=== PATIENT | male | born 1985 | race African-American/Black ===

== ENCOUNTER 2025-05-17 09:39 | Emergency (ER) | payer OTHER ==
[~2025-05-17] VITALS: Ht 175.3 cm; Wt 96.0 kg
[2025-05-17] MEDS ORDERED: PHEN15CA6 PO (10:12)
[2025-05-17 11:21] LABS: KETONE, URINE AUTO RFX NEGATIVE (NEGATIVE); LEUKOCYTE ESTERASE UR AUTO RFX NEGATIVE (NEGATIVE); MUCUS, URINE RFX SMALL (NEGATIVE); NITRITE, URINE AUTO RFX NEGATIVE (NEGATIVE); RBC, URINE AUTO RFX 1 /HPF (0-3); SQUAM EPITHELIAL CELL UR AURFX 0 /HPF (0-6); WBC, URINE AUTO RFX 1 /HPF (0-3)
[2025-05-17 11:30] LABS: Trichomonas vaginalis (AMP) NOT DETECTED (NEGATIVE)
[2025-05-17 11:53] LABS: GC DNA AMPLIFICATION NEGATIVE (NEGATIVE)
[2025-05-17 12:26] VITALS: BP 117/84; TEMP 96.9; O2SAT 100
== END 2025-05-17 13:07 | disposition home or self-care (01) ==
LOC: M ED 09:39
DX: Z20.2 Contact with and (suspected) exposure to infections with a predominantly sexual mode of transmission (principal); Z79.899 Other long term (current) drug therapy